=== PATIENT | female | born 1970 | race Caucasian/White ===

== ENCOUNTER 2024-12-05 09:42 | Day surgery (SDC) | payer OTHER ==
[2024-12-04 15:58] VITALS: BMI 31.8
[2024-12-05 11:04] LABS: HEMATOCRIT 42.6 % (32.4-45.2); HEMOGLOBIN 14.1 G/dL (10.7-15.3); MCH 31.2 pg (25.7-33.7); MCHC 33.1 g/dl (32.0-36.0); MEAN CELL VOLUME 94.4 fl (80-96); MEAN PLT VOLUME 8.5 fl (7.5-11.1); PLATELET COUNT 226.4 10^3/uL (134-434); RBC 4.51 10^6/uL (3.60-5.2); RDW 13.9 % (11.6-15.6); WHITE BLOOD COUNT 5.5 10^3/uL (4.0-10.8)
[2024-12-05 11:09] LABS: ALBUMIN 4.3 g/dl (3.4-5.0); BILIRUBIN,TOTAL 0.5 mg/dl (0.2-1); CREATININE 0.9 mg/dl (0.6-1.3); POTASSIUM 4.3 mmol/L (3.5-5.1); TOT PROT 6.4 g/dl (6.4-8.2)
[2024-12-05 11:16] LABS: PLATELET ESTIMATE ADEQUATE
[2024-12-05] MEDS ORDERED: KETAMINE HCL 100 MG/ML - 5ML VIAL ONE (11:59)
[2024-12-05] MEDS ORDERED: SUCCINYLCHOLINE CHLORIDE 200 MG/10 ML SYRINGE ONE (12:10)
[2024-12-05 12:57] VITALS: RESP 16
[2024-12-05 12:59] VITALS: PULSE 77; TEMP 97.3
[2024-12-05 13:18] VITALS: BP 120/69
== END 2024-12-05 13:18 | disposition home or self-care (01) ==
LOC: FECT 09:42
PROVIDERS: ATTEND Psychiatry & Neurology Psychiatry
PROC: GZB4ZZZ Other Electroconvulsive Therapy (ICD-10-PCS; principal; 2024-12-05 12:14)
DX: F33.9 Major depressive disorder, recurrent, unspecified (principal)
CPT/HCPCS: 36415; 80053; 85025; 90870; 93005; 93010; 94760

== ENCOUNTER 2024-12-09 09:28 | Day surgery (SDC) | payer OTHER ==
[2024-12-09 11:05] VITALS: RESP 18; TEMP 98; BMI 31.8
[2024-12-09] MEDS ORDERED: KETAMINE HCL 100 MG/ML - 5ML VIAL ONE (11:44)
[2024-12-09] MEDS ORDERED: PROPOFOL 20 ML ONE (11:44)
[2024-12-09] MEDS ORDERED: SUCCINYLCHOLINE CHLORIDE 200 MG/10 ML SYRINGE ONE (11:44)
[2024-12-09] MEDS ORDERED: KETOROLAC TROMETHAMINE 30 MG/1 ML VIAL ONE (11:46)
[2024-12-09 13:05] VITALS: PULSE 86
[2024-12-09 13:10] VITALS: BP 124/72
== END 2024-12-09 13:15 | disposition home or self-care (01) ==
LOC: FECT 09:28
PROVIDERS: ATTEND Psychiatry & Neurology Psychiatry
PROC: GZB4ZZZ Other Electroconvulsive Therapy (ICD-10-PCS; principal; 2024-12-09 11:51)
DX: F32.A Depression, unspecified (principal)
CPT/HCPCS: 90870; 94760

== ENCOUNTER 2024-12-11 09:11 | Day surgery (SDC) | payer OTHER ==
[2024-12-08 09:51] VITALS: BMI 31.8
[2024-12-11] MEDS ORDERED: KETAMINE HCL 100 MG/ML - 5ML VIAL ONE (10:11)
[2024-12-11] MEDS ORDERED: PROPOFOL 20 ML ONE (10:11)
[2024-12-11] MEDS ORDERED: SUCCINYLCHOLINE CHLORIDE 200 MG/10 ML SYRINGE ONE (10:12)
[2024-12-11] MEDS ORDERED: KETOROLAC TROMETHAMINE 30 MG/1 ML VIAL ONE (10:12)
[2024-12-11 11:24] VITALS: RESP 18; TEMP 98
[2024-12-11 11:25] VITALS: BP 125/74; PULSE 88
== END 2024-12-11 11:30 | disposition home or self-care (01) ==
LOC: FECT 09:11
PROVIDERS: ATTEND Student in an Organized Health Care Education/Training Program
PROC: GZB4ZZZ Other Electroconvulsive Therapy (ICD-10-PCS; principal; 2024-12-11 10:16)
DX: F32.A Depression, unspecified (principal)
CPT/HCPCS: 90870; 94760

== ENCOUNTER 2024-12-18 08:28 | Day surgery (SDC) | payer OTHER ==
[2024-12-12 13:47] VITALS: BMI 31.8
[2024-12-18] MEDS ORDERED: KETAMINE HCL 100 MG/ML - 5ML VIAL ONE (10:14)
[2024-12-18 11:20] VITALS: RESP 16; TEMP 97.6
[2024-12-18 11:38] VITALS: BP 138/79; PULSE 92
== END 2024-12-18 11:35 | disposition home or self-care (01) ==
LOC: FECT 08:28
PROVIDERS: ATTEND Student in an Organized Health Care Education/Training Program
PROC: GZB4ZZZ Other Electroconvulsive Therapy (ICD-10-PCS; principal; 2024-12-18 10:27)
DX: F32.A Depression, unspecified (principal)
CPT/HCPCS: 90870; 94760

== ENCOUNTER 2024-12-25 08:53 | Day surgery (SDC) | payer OTHER ==
[2024-12-19 11:13] VITALS: BMI 31.8
[2024-12-25] MEDS ORDERED: KETAMINE HCL 100 MG/ML - 5ML VIAL ONE (11:27)
[2024-12-25] MEDS ORDERED: PROPOFOL 20 ML ONE (11:35)
[2024-12-25] MEDS ORDERED: SUCCINYLCHOLINE CHLORIDE 200 MG/10 ML SYRINGE ONE (11:35)
[2024-12-25] MEDS ORDERED: ONDANSETRON 4 MG/2 ML VIAL ONE (11:36)
[2024-12-25] MEDS ORDERED: DEXAMETHASONE SOD PHOSPHATE 4 MG/1 ML VIAL ONE (11:36)
[2024-12-25] MEDS ORDERED: KETOROLAC TROMETHAMINE 30 MG/1 ML VIAL ONE (11:36)
[2024-12-25 12:11] VITALS: RESP 16
[2024-12-25 12:23] VITALS: PULSE 78
[2024-12-25 12:34] VITALS: BP 125/74; TEMP 97.9
== END 2024-12-25 12:48 | disposition home or self-care (01) ==
LOC: FECT 08:53
PROVIDERS: ATTEND Student in an Organized Health Care Education/Training Program
PROC: GZB4ZZZ Other Electroconvulsive Therapy (ICD-10-PCS; principal; 2024-12-25 13:00)
DX: F32.A Depression, unspecified (principal)
CPT/HCPCS: 90870; 94760

== ENCOUNTER 2025-01-01 09:11 | Day surgery (SDC) | payer OTHER ==
[2024-12-15 14:23] VITALS: BMI 31.8
[2025-01-01] MEDS ORDERED: KETAMINE HCL 100 MG/ML - 5ML VIAL ONE (10:37)
[2025-01-01 12:01] VITALS: RESP 19; TEMP 97.8
[2025-01-01 12:05] VITALS: BP 124/74; PULSE 76
== END 2025-01-01 12:00 | disposition home or self-care (01) ==
LOC: FECT 09:11
PROVIDERS: ATTEND Psychiatry & Neurology Psychiatry
PROC: GZB4ZZZ Other Electroconvulsive Therapy (ICD-10-PCS; principal; 2025-01-01 10:56)
DX: F32.A Depression, unspecified (principal)
CPT/HCPCS: 90870; 94760

== ENCOUNTER 2025-01-02 08:54 | Day surgery (SDC) | payer OTHER ==
[2024-12-26 10:35] VITALS: BMI 31.8
[2025-01-02 09:13] VITALS: RESP 17
[2025-01-02] MEDS ORDERED: PROPOFOL 20 ML ONE ×2 (10:49→10:53)
[2025-01-02] MEDS ORDERED: SUCCINYLCHOLINE CHLORIDE 200 MG/10 ML SYRINGE ONE (10:53)
[2025-01-02] MEDS ORDERED: ATROPINE SO4 0.4 MG/1 ML VIAL ONE (11:27)
[2025-01-02 16:25] VITALS: BP 124/71; TEMP 97.1
[2025-01-02 16:26] VITALS: PULSE 89
== END 2025-01-02 11:45 | disposition home or self-care (01) ==
LOC: FECT 08:54
PROVIDERS: ATTEND Psychiatry & Neurology Psychiatry
PROC: GZB4ZZZ Other Electroconvulsive Therapy (ICD-10-PCS; principal; 2025-01-02 10:56)
DX: F32.A Depression, unspecified (principal)
CPT/HCPCS: 90870; 94760

== ENCOUNTER 2025-01-08 10:06 | Day surgery (SDC) | payer OTHER ==
[2025-01-05 10:26] VITALS: BMI 31.8
[2025-01-08 12:37] VITALS: RESP 18; TEMP 97.5
[2025-01-08 12:51] VITALS: BP 108/64; PULSE 76
== END 2025-01-08 12:57 | disposition home or self-care (01) ==
LOC: FECT 10:06
PROVIDERS: ATTEND Psychiatry & Neurology Psychiatry
PROC: GZB4ZZZ Other Electroconvulsive Therapy (ICD-10-PCS; principal; 2025-01-08 11:43)
DX: F32.A Depression, unspecified (principal)
CPT/HCPCS: 90870; 94760

== ENCOUNTER 2025-01-15 09:39 | Day surgery (SDC) | payer OTHER ==
[2025-01-12 07:47] VITALS: BMI 31.8
[2025-01-15 12:04] VITALS: RESP 18; TEMP 98
[2025-01-15 12:23] VITALS: BP 124/74; PULSE 74
== END 2025-01-15 12:19 | disposition home or self-care (01) ==
LOC: FECT 09:39
PROVIDERS: ATTEND Student in an Organized Health Care Education/Training Program
PROC: GZB4ZZZ Other Electroconvulsive Therapy (ICD-10-PCS; principal; 2025-01-15 11:25)
DX: F32.A Depression, unspecified (principal)
CPT/HCPCS: 90870; 94760

== ENCOUNTER 2025-01-20 09:37 | Day surgery (SDC) | payer OTHER ==
[2025-01-12 08:00] VITALS: BMI 31.8
[2025-01-20] MEDS ORDERED: DEXAMETHASONE SOD PHOSPHATE 4 MG/1 ML VIAL ONE ×2 (09:45→10:50)
[2025-01-20] MEDS ORDERED: LIDOCAINE HCL/PF 2% SDV 5ML VIAL ONE (09:45)
[2025-01-20] MEDS ORDERED: SUCCINYLCHOLINE CHLORIDE 200 MG/10 ML SYRINGE ONE ×2 (09:45→10:51)
[2025-01-20] MEDS ORDERED: ONDANSETRON 4 MG/2 ML VIAL ONE ×2 (09:45→10:50)
[2025-01-20] MEDS ORDERED: KETOROLAC TROMETHAMINE 30 MG/1 ML VIAL ONE ×2 (09:45→10:50)
[2025-01-20] MEDS ORDERED: PROPOFOL 20 ML ONE ×2 (09:45→10:51)
[2025-01-20 09:59] VITALS: RESP 18
[2025-01-20 11:51] VITALS: TEMP 97.6
[2025-01-20 12:14] VITALS: BP 103/64; PULSE 76
== END 2025-01-20 12:17 | disposition home or self-care (01) ==
LOC: FECT 09:37
PROVIDERS: ATTEND Psychiatry & Neurology Psychiatry
PROC: GZB4ZZZ Other Electroconvulsive Therapy (ICD-10-PCS; principal; 2025-01-20 11:01)
DX: F32.A Depression, unspecified (principal)
CPT/HCPCS: 90870; 94760

== ENCOUNTER 2025-01-29 10:46 | Day surgery (SDC) | payer OTHER ==
[2025-01-23 15:37] VITALS: BMI 31.8
[2025-01-29 13:28] VITALS: RESP 18; TEMP 97.3
[2025-01-29 13:37] VITALS: BP 112/70; PULSE 72
== END 2025-01-29 13:37 | disposition home or self-care (01) ==
LOC: FECT 10:46
PROVIDERS: ATTEND Student in an Organized Health Care Education/Training Program
PROC: GZB4ZZZ Other Electroconvulsive Therapy (ICD-10-PCS; principal; 2025-01-29 12:49)
DX: F32.A Depression, unspecified (principal)
CPT/HCPCS: 90870; 94760

== ENCOUNTER 2025-03-24 07:09 | Day surgery (SDC) | payer OTHER ==
[2025-03-17 17:11] VITALS: BMI 31.8
[2025-03-24] MEDS ORDERED: PROPOFOL 20 ML ONE (08:53)
[2025-03-24] MEDS ORDERED: KETOROLAC TROMETHAMINE 30 MG/1 ML VIAL ONE (08:54)
[2025-03-24] MEDS ORDERED: SUCCINYLCHOLINE CHLORIDE 200 MG/10 ML SYRINGE ONE (08:54)
[2025-03-24] MEDS ORDERED: LIDOCAINE HCL 2% 100 MG/5 ML DISP.SYRIN ONE (08:54)
[2025-03-24] MEDS ORDERED: ETOMIDATE 20 MG/10 ML VIAL IVPUSH ONE (08:54)
[2025-03-24] MEDS ORDERED: KETAMINE HCL 200 MG/20 ML VIAL ONE (08:55)
[2025-03-24 10:10] VITALS: TEMP 98
[2025-03-24 10:16] VITALS: BP 120/74; PULSE 74; RESP 18
== END 2025-03-24 10:15 | disposition home or self-care (01) ==
LOC: FECT 07:09
PROVIDERS: ATTEND Student in an Organized Health Care Education/Training Program
PROC: GZB4ZZZ Other Electroconvulsive Therapy (ICD-10-PCS; principal; 2025-03-24 09:04)
DX: F32.A Depression, unspecified (principal)
CPT/HCPCS: 90870; 94760

== ENCOUNTER 2025-04-02 07:48 | Day surgery (SDC) | payer OTHER ==
[2025-04-02 08:05] VITALS: BMI 31.8
[2025-04-02] MEDS ORDERED: KETAMINE HCL 100 MG/ML - 5ML VIAL ONE (08:56)
[2025-04-02] MEDS ORDERED: ETOMIDATE 20 MG/10 ML VIAL IVPUSH ONE (09:07)
[2025-04-02 10:07] VITALS: RESP 16
[2025-04-02 10:08] VITALS: BP 111/71; PULSE 72
[2025-04-02 10:09] VITALS: TEMP 97.2
== END 2025-04-02 10:45 | disposition home or self-care (01) ==
LOC: FECT 07:48
PROVIDERS: ATTEND Psychiatry & Neurology Psychiatry
PROC: GZB4ZZZ Other Electroconvulsive Therapy (ICD-10-PCS; principal; 2025-04-02 09:25)
DX: F32.A Depression, unspecified (principal)
CPT/HCPCS: 90870; 94760